=== PATIENT | female | born 2000 | race Caucasian/White ===

== ENCOUNTER 2023-10-02 11:42 | Emergency (ER) | payer SELFPAY | END 2023-10-02 12:55 | disposition home or self-care (01) | LOC: LL.ED 11:42 | DX: J02.0 Streptococcal pharyngitis (principal); Z88.0 Allergy status to penicillin | CPT/HCPCS: 87651-QW; 99283 ==

== ENCOUNTER 2023-12-29 14:05 | Emergency (ER) | payer SELFPAY ==
[2023-12-29 15:12] LABS: CORONAVIRUS COVID-19 NAA NEGATIVE (NEGATIVE); INFLUENZA A NAA NEGATIVE (NEGATIVE); INFLUENZA B NAA NEGATIVE (NEGATIVE); RESPIRATORY SYNCYTIAL VIR NAA NEGATIVE (NEGATIVE)
== END 2023-12-29 16:30 | disposition home or self-care (01) ==
LOC: LL.ED 14:05
DX: J06.9 Acute upper respiratory infection, unspecified (principal); Z79.899 Other long term (current) drug therapy; Z88.0 Allergy status to penicillin
CPT/HCPCS: 0241U; 99283

== ENCOUNTER 2024-07-25 11:05 | Emergency (ER) | payer MEDICAID ==
[2024-07-25 12:04] LABS: CORONAVIRUS COVID-19 NAA NEGATIVE (NEGATIVE); STREP A BY PCR DETECTED (NOT DETECT)
[2024-07-25] MEDS: Azithromycin 250 MG Tab PO ONE (12:26)
== END 2024-07-25 12:30 | disposition home or self-care (01) ==
LOC: LL.ED 11:05
DX: J02.0 Streptococcal pharyngitis (principal); Z88.0 Allergy status to penicillin
CPT/HCPCS: 87651; 99283; A9270-GY; U0002